=== PATIENT | female | born 1955 | race Two or more races ===

== ENCOUNTER → 2024-07-01 | Outpatient (CLI) | payer OTHER, MEDICAID, SELFPAY ==
--- NOTE | 2024-07-01 08:41 | XR_ITS ---
Examination: PA lateral chest 2 views TECHNIQUE: Upright PA lateral chest 2 views Exam date and time: July 01, 2024 0900 hours INDICATIONS: Coughing beginning one month ago. FINDINGS: Normal heart size Lungs are clear. The osseous structures are intact IMPRESSION: No active disease
== END | disposition home or self-care (01) ==
LOC: CDIM 08:24
PROVIDERS: PCP Family Medicine; Referring Provider Nurse Practitioner Family; Visit Provider Nurse Practitioner Family
DX: R05.9 Cough, unspecified (principal)
CPT/HCPCS: 71046

== ENCOUNTER 2024-07-25 08:10 | Day surgery (SDC) | payer OTHER, MEDICAID, SELFPAY ==
[2024-07-22 10:32] VITALS: BMI 31.9
--- NOTE | 2024-07-22 10:59 | EKG_ITS ---
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
[2024-07-22 11:46] LABS: Alanine Aminotransferase 15 U/L (10-49); Albumin, Serum 4.4 gm/dL (3.4-4.8); Albumin/Globulin Ratio 1.8 (1.2-2.2); Alkaline Phosphatase 107 U/L (46-116); Anion Gap 9 (7-16); Aspartate Amino Transferase 23 U/L (0-34); BUN/Creatinine Ratio 17 Ratio (12-20); Bilirubin,Total 0.4 mg/dL (0.3-1.2); Blood Urea Nitrogen 15 mg/dL (9-23); Calcium 9.4 mg/dL (8.3-10.6); Calcium (Corrected) 9.4 mg/dL (8.5-10.1); Carbon Dioxide 30.2 mMol/L (20.0-31.0); Chloride 100 mMol/L (98-107); Creatinine (Component) 0.9 mg/dL (0.6-1.3); Estimated Creatinine Clearance 58.4 mL/min (>60); Globulin 2.4 gm/dL (2.3-3.5); Glucose 109 mg/dL (74-106); Osmolality,Calculated 279 (275-295); Potassium 3.1 mMol/L (3.4-5.1); Sodium 139 mMol/L (136-145); Total Protein 6.8 gm/dL (5.7-8.2); eGFR > 60 See Note
--- NOTE | 2024-07-23 13:13 | SUR.PREOP ---
Cardiac records reviewed with Dr Kinney.
[2024-07-25] VITALS (8 sets, daily range): BP systolic 139–169; BP diastolic 75–108; PULSE 52–73; RESP 13–20; TEMP 36.1–36.6; O2SAT 95–100; BMI 32.0
[2024-07-25] MEDS: RINGERS LACTATED 1000 ML 1,000 ML 20 ML IV (08:58)
--- NOTE | 2024-07-25 11:59 | SUR.PHASEI ---
pt received from OR in recovery bay 5. pt asleep but responds to voice, breathing unlabored on oxymask 6l. v/s stable. pt dressing to right ear cdi. report received from Katalina CARTER and Swapna BENTLEY.
--- NOTE | 2024-07-25 12:12 | PD.SUROPNT ---
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 The prior cartilaginous graft was in good position on the tympanic membrane. Chorda tympani nerve was intact. There were moderate adhesions in the middle ear space which were transected with Bellucci scissors. Procedure Description Patient had a previous tympanomastoidectomy in which a ossicular chain reconstruction was required using a TORP prosthesis. Over time the patient's hearing had diminished and she wished to have an exploration performed to see if it could be improved again. She was aware of the risk of infection bleeding decreased sense of taste and worsening of the hearing loss. Patient was marked in the preoperative setting and shaved. She was then transferred to the operative suite where she was anesthetized and intubated. Timeout was performed. The patient was sterilely prepped and draped. The right external canal was irrigated with warm saline solution and suctioned and the canal was then injected with 1% lidocaine with 1 100,000 dilution epinephrine. Less than 1 cc total was used. Posterior tympanomeatal flap was created adhesions were lysed with the chisel and the Bellucci scissors preserving the chorda tympani nerve. The previous prosthesis was found to be tipped over out of position. This was removed. Adhesions were removed from overlying the oval window and stapes footplate. Sizing prosthesis was then placed for reconstruction and felt that a 2.5 mm would be the best length with the overlying cartilage graft and the tympanic membrane. The prosthesis was then trimmed to the correct size the footplate shoe was placed over the footplate and then the prosthesis gently placed inside the footplate shoe in an upright position. Surgifoam was placed inferior to the prosthesis to help hold it in position while healing. The tympanic membrane and cartilage graft were pulled back over the surface of the prosthesis and draped back onto the posterior canal wall. Surgifoam dipped in saline was then packed over the graft and the posterior canal wall. Patient was then awakened and taken the recovery room in stable condition Anesthesia GETA Implants 2.5 mm titanium alto prosthesis with a Blanca Buddy footplate Pathology / specimen None Estimated Blood Loss 1 Surgeon Jesus Bryan DO Surgical Staff Operation Date: 07/25/24 10:15 Case Staff Anesthesiologist: Iftikhar Bhandari
--- NOTE | 2024-07-25 12:21 | SUR.PHASEI ---
pt able to tolerate oral fluids without difficulty swallowing or nausea/vomiting.
--- NOTE | 2024-07-25 13:13 | SUR.PHASEII ---
1245: pt awake, alert, able to follow commands, breathing unlabored, dressing to right ear clean, dry, and intact, VS stable, report from Bryan CARTER 1313: pt awake, alert, able to follow commands, breathing unlabored, dressing to right ear clean, dry, and inact, VS stable, discharge instructions given using telephone engineering mathematician Erica ID#[id number] with sister in law present, all questions answered, pt and family member verbalize understanding, pt discharged via wheelchair with all belongings and copies of discharge paperwork.
== END 2024-07-25 13:13 | disposition home or self-care (01) ==
PROVIDERS: PCP Nurse Practitioner Family; Referring Provider Otolaryngology; Visit Provider Otolaryngology
PROC: (CPT 69632; principal; 2024-07-25 10:00)
DX: H90.71 Mixed conductive and sensorineural hearing loss, unilateral, right ear, with unrestricted hearing on the contralateral side (principal); H70.11 Chronic mastoiditis, right ear; Z01.810 Encounter for preprocedural cardiovascular examination
CPT/HCPCS: 69632; 36415; 80053; 93005; A4217; A4649; J0131; J0171; J0690; J1100; J2371; J2405; J2704; J3010; J3473; J3490; J7120; L8613; A9270

== ENCOUNTER → 2024-07-31 | Outpatient (CLI) | payer OTHER, MEDICAID, SELFPAY ==
[2024-07-29 13:41] VITALS: BMI 31.1
[2024-07-30 14:39] LABS: Basophils % (Auto) 0 % (0-2.5); Eosinophils # (Auto) 0.1 Thou/mm3 (0.0-0.5); Eosinophils % (Auto) 1 % (0-10); Hematocrit 40.4 % (36.0-46.0); Hemoglobin 13.6 g/dL (12.0-16.0); Immature Granulocytes % (Auto) 0 % (0-0); Immature Granulocytes Auto 0.04 Thou/mm3 (0.00-0.00); Lymphocytes # (Auto) 1.5 Thou/mm3 (1.0-4.8); Lymphocytes % (Auto) 15 % (10-50); Mean Corpuscular HGB Conc 33.7 g/dl (31.0-37.0); Mean Corpuscular Hemoglobin 30.4 pg (25.0-35.0); Mean Corpuscular Volume 90 fL (80-100); Monocytes # (Auto) 0.6 Thou/mm3 (0.0-0.8); Monocytes % (Auto) 6 % (0-12); Neutrophils # (Auto) 7.8 Thou/mm3 (1.8-7.7); Neutrophils % (Auto) 77 % (37-80); Nucleated Red Blood Cell % 0 /100 WBC (0); Platelet Count 279 Thou/mm3 (140-440); RDW Standard Deviation 41.5 fL (36.4-46.3); Red Blood Count 4.47 Miln/mm3 (4.00-5.20)
[2024-07-30 14:44] LABS: Partial Thromboplastin Time 26.1 Seconds (22.0-36.0)
[2024-07-30 14:46] LABS: Blood Urea Nitrogen 22 mg/dL (9-23); Creatinine (Component) 0.9 mg/dL (0.6-1.3); Estimated Creatinine Clearance 57.5 mL/min (>60); eGFR > 60 See Note
[2024-07-31 08:58] VITALS: BP 151/89; PULSE 61; RESP 12; TEMP 36.9; O2SAT 97
--- NOTE | 2024-07-31 09:00 | XR_ITS ---
Examination: CT abdomen and pelvis without contrast. Coronal 3-D reconstructions. Sagittal 2-D reconstructions. Date and time of exam:July 31, 2024 1030 hours INDICATIONS: Cystic mass above the left kidney on CT examination September 18, 2023 CTDI: vol (mGy): 10.1 DLP: (mGycm): 561 Technique: Axial images of the abdomen have been obtained, 3 mm slice thickness Intravenous contrast material has not been administered. Low dose protocols were performed. One or more of the following dose reduction techniques were used; automated exposure control, adjustment of the mA and/or KV according to patient size, use of iterative reconstruction technique. Findings: Stable likely benign cystic mass above the left kidney There is lung between this cystic mass and the posterior chest wall precluding safe biopsy Incidental note 6 cm anterior left renal cyst IMPRESSION: Benign-appearing cystic mass above the left kidney There is lung between this cystic mass and the posterior chest wall, precluding safe biopsy
[2024-07-31] MEDS: SODIUM CHLORIDE 0.9% 250 ML 250 ML 50 ML IV (10:02)
[2024-07-31 11:08] VITALS: BP 142/71; PULSE 57; RESP 19; TEMP 36.9; O2SAT 97
--- NOTE | 2024-07-31 11:24 | PC.NURSE ---
Periaortic Cystic Mass biopsy not performed as ordered. Dr. Kent explained to patient that risk outweigh the benefits at this time. As per Dr. Kent, diagnostic imaging should be performed as per PCP orders to monitor cystic mass as deemed necessary.
== END | disposition home or self-care (01) ==
LOC: SIRX 08-01 07:08
PROVIDERS: Radiology Diagnostic Radiology; PCP Nurse Practitioner Family; Referring Provider Family Medicine; Visit Provider Family Medicine
DX: N28.1 Cyst of kidney, acquired (principal); Z53.8 Procedure and treatment not carried out for other reasons
CPT/HCPCS: 36415; 74176; 82565; 84520; 85025; 85610; 85730; J7050

== ENCOUNTER → 2024-12-02 | Outpatient (CLI) | payer OTHER, MEDICAID, SELFPAY ==
--- NOTE | 2024-12-02 13:34 | XR_ITS ---
Examination: PA lateral chest 2 views TECHNIQUE: Upright PA lateral chest 2 views Date and time: December 02, 2024 1346 hours Comparison July 01, 2024 INDICATIONS: Chronic coughing FINDINGS: Normal heart size Lungs are clear. The osseous structures are intact with moderate thoracic spondylosis IMPRESSION: No active disease
== END | disposition home or self-care (01) ==
PROVIDERS: PCP Nurse Practitioner Family; Referring Provider Specialist; Visit Provider Specialist
DX: R06.02 Shortness of breath (principal)
CPT/HCPCS: 71046

== ENCOUNTER → 2025-04-11 | Outpatient (CLI) | payer OTHER, MEDICAID, SELFPAY ==
--- NOTE | 2025-04-11 11:45 | XR_ITS ---
Examination: Screening digital mammography, bilateral Computer aided detection 3-D breast Tomosynthesis, bilateral Date and time of exam: April 11, 2025, 1146 hours, compared to mammograms dating to May 06, 2025 Indication: Screening Technique: Nonmagnified MLO, CC views of the breasts to been obtained, reconstructed from 3-D Tomosynthesis images. R2 computer aided detection program utilized for evaluation of suspicious masses and/or abnormal calcifications. 3-D Tomosynthesis images obtained. Findings: Scattered areas of fibroglandular density. Calcifications which may be on the skin in the right breast in 2 locations inner lower right breast and outer right breast Impression: BI-RADS Category 0: Incomplete: Need additional evaluation Recommend this patient return for tangential views calcifications right breast to assess whether these calcifications around the skin
== END | disposition home or self-care (01) ==
LOC: CDIM 11:26
PROVIDERS: Referring Provider Nurse Practitioner Family; Visit Provider Nurse Practitioner Family
DX: Z12.31 Encounter for screening mammogram for malignant neoplasm of breast (principal); R92.1 Mammographic calcification found on diagnostic imaging of breast; R92.8 Other abnormal and inconclusive findings on diagnostic imaging of breast
CPT/HCPCS: 77063; 77067

== ENCOUNTER → 2025-05-14 | Outpatient (CLI) | payer OTHER, MEDICAID, SELFPAY ==
--- NOTE | 2025-05-14 13:30 | XR_ITS ---
Examination: Diagnostic digital mammography, unilateral, right Computer aided detection 3-D breast Tomosynthesis, unilateral Date and time of exam: May 14, 2025, 1336 hours INDICATIONS: 2 foci of microcalcifications lower right breast outer right breast Technique: Nonmagnified MLO, CC views of the right breast have been obtained, reconstructed from 3-D Tomosynthesis images. R2 computer aided detection program utilized for evaluation of suspicious masses and/or abnormal calcifications. 3-D Tomosynthesis images obtained. Findings: Scattered areas of fibroglandular density. Visualized calcifications appear to be on the skin Impression: BI-RADS category 3: Probably benign findings Recommend 6-month right mammogram follow-up
== END | disposition home or self-care (01) ==
LOC: CDIM 13:18
PROVIDERS: Referring Provider Nurse Practitioner Family; Visit Provider Nurse Practitioner Family
DX: R92.331 Mammographic heterogeneous density, right breast (principal); R92.1 Mammographic calcification found on diagnostic imaging of breast
CPT/HCPCS: 77061; 77065; G0279